=== PATIENT | male | born 1960 | race Caucasian/White ===

== ENCOUNTER 2017-07-01 13:31 | Emergency (ER) | payer OTHER, BC ==
[~2017-07-01] VITALS: Ht 180.3 cm; Wt 139.6 kg
[2017-07-01 13:37] VITALS: TEMP 37.3; Ht 180.3 cm; Wt 139.6 kg
[2017-07-01] MEDS ORDERED: HYDROmorphone INJ 1 MG/ML SYR IV STA ×2 (13:38→14:14)
[2017-07-01] MEDS ORDERED: ONDANSETRON INJ 2 MG/ML 2 ML VIAL IV STA (13:38)
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
[2017-07-01] MEDS ORDERED: ADAL40KI INJ (14:35)
[2017-07-01] MEDS ORDERED: CALC500C70 PO (14:35)
[2017-07-01] MEDS ORDERED: VALS320T PO (14:35)
[2017-07-01] MEDS ORDERED: COLE1TAB PO (14:35)
[2017-07-01] MEDS ORDERED: MONT1TAB3 PO (14:35)
[2017-07-01] MEDS ORDERED: METF500T5 PO (14:35)
[2017-07-01] MEDS ORDERED: GLIP5TAB3 PO (14:35)
[2017-07-01] MEDS ORDERED: MOME6000 NAE (14:35)
[2017-07-01] MEDS ORDERED: CETI10TA84 PO (14:35)
[2017-07-01] MEDS ORDERED: NAPR1TAB9 PO (14:35)
[2017-07-01] MEDS ORDERED: ESOM20CA PO (14:35)
[2017-07-01] MEDS ORDERED: FRS/40 PO (14:35)
[2017-07-01] MEDS ORDERED: OXYC-57 PO (14:42)
[2017-07-01] MEDS ORDERED: PERCOCET HOME PACK PO ONE ×2 (14:45)
[2017-07-01 15:48] VITALS: BP 165/108; PULSE 86; O2SAT 96
== END 2017-07-01 15:30 | disposition home or self-care (01) ==
LOC: C.EDB 13:33
DX: S52.501A Unspecified fracture of the lower end of right radius, initial encounter for closed fracture (principal); S52.601A Unspecified fracture of lower end of right ulna, initial encounter for closed fracture; V28.4XXA Motorcycle driver injured in noncollision transport accident in traffic accident, initial encounter; Y92.410 Unspecified street and highway as the place of occurrence of the external cause; K50.90 Crohn's disease, unspecified, without complications; E11.9 Type 2 diabetes mellitus without complications; I10 Essential (primary) hypertension; Z79.899 Other long term (current) drug therapy